=== PATIENT | female | born 2000 | race Caucasian/White ===

== ENCOUNTER 2023-05-28 19:32 | Observation (INO) | payer SELFPAY ==
[~2023-05-28] VITALS: Ht 162.6 cm; Wt 69.1 kg
[2023-05-28 19:59] LABS: BASO # 0.1 K/mm3 (0.0-0.2); BASO % 0.4 % (0.0-2.0); EOS # 0.1 K/mm3 (0.0-0.7); EOS % 0.5 % (0.0-4.0); GRAN # 12.7 K/mm3 (1.4-6.5); GRAN % 81.4 % (42.2-75.2); HEMATOCRIT 42.6 % (37.0-47.0); HEMOGLOBIN 14.6 g/dl (12.5-16.0); LYMPH # 1.7 K/mm3 (1.2-3.4); LYMPH % 11.1 % (20.0-51.0); MEAN CELL VOLUME 88 fl (80.0-100.0); MEAN CORPUSCULAR HEMOGLOBIN 30 pg (27-31); MEAN CORPUSCULAR HGB CONC 34 g/dl (33.0-37.0); MEAN PLATELET VOLUME 8.4 fl (7.4-10.4); MONO % 6.3 % (1.7-9.3); PLATELET COUNT 316 K/mm3 (130-400); RED BLOOD COUNT 4.84 M/mm3 (4.10-5.30); REDCELL DISTRIBUTION WIDTH-CV 12.5 % (11.5-14.5)
[2023-05-28 20:09] LABS: COLLECTION METHOD CLEAN CATCH
[2023-05-28 20:19] LABS: STREP SCREEN NEGATIVE
[2023-05-28 20:20] LABS: ALBUMIN 4.6 gm/dL (3.5-5.0); BILIRUBIN,TOTAL 0.7 mg/dL (0.2-1.2); C-REACTIVE PROTEIN 3.37 mg/dL (0.00-0.50); CALCIUM 9.8 mg/dL (8.4-10.2); CREATININE, serum 0.91 mg/dL (0.57-1.11); POTASSIUM 3.7 mmol/L (3.5-4.5); TOTAL PROTEIN 8.6 gm/dL (6.2-8.1)
[2023-05-28 20:30] LABS: TROPONIN-I 0.039 ng/mL (0.00-0.033)
[2023-05-28 20:45] LABS: PH 6.5 (5.0-8.5); URINE APPEARANCE Hazy (CLEAR/HAZY); URINE BLOOD Negative (NEGATIVE); URINE COLOR Yellow (YELLOW); URINE GLUCOSE Negative (NEGATIVE); URINE KETONE Negative (NEGATIVE); URINE NITRATE Negative (NEGATIVE); URINE PROTEIN(semi-quant) Negative (NEGATIVE); URINE RBC 0-2 /hpf (0-2); URINE UROBILINOGEN 0.2 E.U/dL (0.2-1.0)
[2023-05-28 20:46] LABS: SQUAMOUS EPITHELIAL 0-2 /hpf (0-10); URINE BACTERIA Rare /hpf (NONE SEEN)
[2023-05-28 20:56] LABS: MONOSCREEN NEGATIVE
[2023-05-29] VITALS (8 sets, daily range): BP systolic 91–105; BP diastolic 51–64; PULSE 78–104; TEMP 98.4–98.5
--- NOTE | 2023-05-29 00:09 | NUR ---
patient received on unit around 2350, alert and oriented x4. pt ambulate indp. with steady gait, orieted to room. pt indp. perform hygiene care. pt denies chest pain and shortness of breath at this time. IV in RAC is patent, site is clean dry and intact. no remarkable skin findings. pt has no further needs, questions, or concerns at this time. call light within reach, will continue to monitor.
--- NOTE | 2023-05-29 03:42 | NUR ---
[id number] Keene notified of critical troponin, 0.047. will continue to monitor
[2023-05-29 05:55] LABS: CHOLESTEROL RISK RATIO 2.7
[2023-05-29 05:56] LABS: BASO # 0.1 K/mm3 (0.0-0.2); BASO % 0.5 % (0.0-2.0); EOS # 0.1 K/mm3 (0.0-0.7); GRAN # 9.2 K/mm3 (1.4-6.5); GRAN % 73.7 % (42.2-75.2); LYMPH % 15.7 % (20.0-51.0); MEAN CELL VOLUME 88 fl (80.0-100.0); MEAN CORPUSCULAR HGB CONC 35 g/dl (33.0-37.0); MEAN PLATELET VOLUME 8.9 fl (7.4-10.4); MONO # 1.1 K/mm3 (0.1-0.6); MONO % 8.8 % (1.7-9.3); PLATELET COUNT 262 K/mm3 (130-400); RED BLOOD COUNT 3.95 M/mm3 (4.10-5.30); REDCELL DISTRIBUTION WIDTH-CV 12.7 % (11.5-14.5)
[2023-05-29 05:57] LABS: HEMATOCRIT 34.8 % (37.0-47.0); MEAN CORPUSCULAR HEMOGLOBIN 30 pg (27-31)
--- NOTE | 2023-05-29 05:58 | NUR ---
patient reported eating solid, regular diet while in the ER. pt report food was well tolerated, no nausea/vomiting or throat discomfort during and after food consumption.
[2023-05-29 06:18] LABS: CALCIUM 8.6 mg/dL (8.4-10.2); CREATININE, serum 0.74 mg/dL (0.57-1.11); POTASSIUM 3.8 mmol/L (3.5-4.5)
--- NOTE | 2023-05-29 07:00 | NUR ---
PT RESTING IN BED TALKING ON THE PHONE. PT IS ON RA. PT IS SR-ST UP TO 120'S. PT IS AXOX3. PT INSTRUCTED TO CALL WITH ALL NEEDS. 0730- PT COMPLAINING OF A LITTLE HEADACHE AND SORE THROAT. TYLENOL GIVEN, PT UPDATED PLAN OF CARE.
[2023-05-29] MEDS ORDERED: TRI-SPRINTEC 281 TAB PO (09:02)
[2023-05-29] MEDS ORDERED: MULTI VITAMINS1 TAB PO (09:10)
[2023-05-29] MEDS ORDERED: ZYRTEC 10MG10 MG PO (09:11)
--- NOTE | 2023-05-29 09:21 | NUR ---
Initial visit; Patient doing well and thanked Be[employer]ader for visiting. Her mom also thanked Be[employer] Grader for looking in on [facility] and offering God's blessings.
--- NOTE | 2023-05-29 09:43 | NUR ---
ABDON YEE WITH CARDIOLOGY CALLED AND NOTIFIED OF CONSULT.
--- NOTE | 2023-05-29 11:02 | NUR ---
PROFESSOR OF THEATER reviewed pt's clinical record before rounds and noted she was admitted 05/28/2023 for sepsis secondary to pharyngotonsillitis. Social Work Student conducted the initial intake with pt and her mother, Karis with PROFESSOR OF THEATER in attendance during rounds. Pt was pleasant, oriented to person, time, place and situation, and she had a good understanding as to the reason for her hospitalization. Pt reports she resides with her parents, who are farmers, in [place], [place]. Mo reports medical expenses will be paid thru [employer]. Pt's mother explained that she submits the medical bill to the agency who pays the bill. PROFESSOR OF THEATER referred pt's mother to the financial dept, ph# [phone] for further f/u. 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 When asked if she had an advance directive, pt stated," no." She declined education and information offered about advance directive. Pt reports her primary care provider is DARYL Espinosa, ph# [phone]. She fills her medications at [facility] on [address]. Pt does not anticipate a need for Services once discharge. She will be discharged home with oral antibiotics. No other concerns noted.
[2023-05-29] MEDS ORDERED: AMOXICILLIN 8751 TAB PO (14:48)
--- NOTE | 2023-05-29 15:22 | NUR ---
1505-ABDON RN WITH CARDIOLOGY PAGED REGARDING FOLLOW UP. NO RETURN CALL. 1520-ABDON WITH CARDIOLOGY PAGED. NO RETURN CALL. WILL HAVE PT CALL THE CARDIOLOGY OFFICE TOMORROW FOR FOLLOW UP.
--- NOTE | 2023-05-29 15:54 | NUR ---
IV AND TELE DCD. DISCHARGE INSTRUCTIONS DISCUSSED WITH PT AND MOM. DISCUSSED FOLLOW UP APPOINTMENTS AND ANTIBIOTIC. ALL QUESTIONS ANSWERED. PT ESCORTED OUT BY MYKEL PAULSON, ACCOMPAINED BY MOM.
== END 2023-05-29 15:55 | disposition home or self-care (01) ==
LOC: COL.ER 19:32 → MEDICAL 22:14
PROVIDERS: Nurse Practitioner; Physician Assistant; ADMIT Internal Medicine
DX: J02.9 Acute pharyngitis, unspecified (principal); A41.9 Sepsis, unspecified organism; I42.2 Other hypertrophic cardiomyopathy; Z11.52 Encounter for screening for COVID-19; I34.0 Nonrheumatic mitral (valve) insufficiency
CPT/HCPCS: G0378; J0696; J0737; J1885; J7030; J7120; Q9967